=== PATIENT | female | born 2000 | race Caucasian/White ===

== ENCOUNTER 2024-02-08 13:24 | Emergency (ER) | payer MEDICAID ==
[~2024-02-08] VITALS: Ht 162.6 cm; Wt 113.6 kg
[2024-02-08 13:30] VITALS: BP 132/82; PULSE 82; TEMP 97.2; O2SAT 100
[2024-02-08] MEDS: ibuprofen tablet 400 MG TABLET PO ONE (14:22)
[2024-02-08 14:30] VITALS: RESP 17
== END 2024-02-08 14:31 | disposition home or self-care (01) ==
LOC: ER 13:24
DX: S93.402A Sprain of unspecified ligament of left ankle, initial encounter (principal); Z91.018 Allergy to other foods; X58.XXXA Exposure to other specified factors, initial encounter; Y93.89 Activity, other specified; Y92.89 Other specified places as the place of occurrence of the external cause; Y99.8 Other external cause status
CPT/HCPCS: 73610; 99283; A6449

== ENCOUNTER 2024-12-02 09:31 | Emergency (ER) | payer MEDICAID ==
[~2024-12-02] VITALS: Ht 160 cm; Wt 113.5 kg
[2024-12-02 09:53] VITALS: BP 144/90; PULSE 64; RESP 18; O2SAT 100
--- NOTE | 2024-12-02 10:50 | RADIOLOGY REPORT ---
EXAM: DI CHEST,SINGLE VIEW Indication: CP Technique: Single frontal view of the chest was obtained Comparison: None FINDINGS: Lines and Tubes: None Lungs: No focal consolidation. Pleura: No effusion. No pneumothorax. Cardiomediastinal contours: Unremarkable Bones: No acute osseous abnormality. IMPRESSION: No acute cardiopulmonary disease.
--- NOTE | 2024-12-02 11:21 | Physician Documentation ---
History of Present Illness ~ Chief Complaint: Cough Stated Complaint: COUGH Time Seen by MD: 10:50 [facility] This is a 24-year-old female who presents with three weeks of persistent nonproductive cough, patient reports that she has been seen at multiple urgent cares and diagnosed with bronchitis, patient reports that she is on a course of steroids and has been prescribed a inhaler and Tessalon Perles. Patient reports that prescribed this is a referrals do help though she is running low. Patient reports she is concerned she may have pneumonia. Patient reports no fevers or difficulty breathing. Patient reports that she does have history of GERD though this is untreated. Medication Reconciliation Allergies: Coded Allergies: kiwi (Verified Allergy, Unknown, 12/02/24) Scheduled Benzonatate* (Benzonatate*), 1-2 CAP PO Q4H Omeprazole (Omeprazole), 1 CAP PO DAILY Past Medical History Past Medical History: No Pertinent History Past Surgical History: no surgical history Alcohol Use: None Drug Use: none Lives with: Mother Lives In: Home Occupation: student Review of Systems ROS As stated above in the HPI, otherwise all systems are reviewed and negative. Physical Exam Vital Signs: Temperature: 98.0, Source: Oral, Heart Rate: 64, Respiratory Rate: 18, BP: 144/90, Pulse Oximetry: 100, Weight: 113.500 Oxygen Flow Rate: 0 Physical Exam VITALS: Reviewed and as above. GENERAL: Alert, nontoxic appearing, no apparent distress. RESPIRATORY: No increased work of breathing, no respiratory distress, speaking in full clear sentences, clear lung sounds in all robertson CV: Regular rate and rhythm no murmur Progress Results/Orders Results/Orders Vital Signs 12/02/24 12/02/24 09:53 11:36 Temp 98.0 98.0 Pulse 64 Resp 18 B/P (MAP) 144/90 Pulse Ox 100 O2 Flow Rate 0 EKG/XRAY/CT/US/VASC/MRI Chest X-Ray : Additional Comments Exam: CHEST,SINGLE VIEW EXAM: DI CHEST,SINGLE VIEW Indication: CP Technique: Single frontal view of the chest was obtained Comparison: None FINDINGS: Lines and Tubes: None Lungs: No focal consolidation. Pleura: No effusion. No pneumothorax. Cardiomediastinal contours: Unremarkable Bones: No acute osseous abnormality. IMPRESSION: No acute cardiopulmonary disease. Electronically Signed by:KELSIE HARVEY MD Date & Time: 12/02/241047 Dictated by: KELSIE HARVEY MD Dictation date and time: 12/02/241047 I have reviewed and agree with the radiology report. I have reviewed and interpreted the imaging as: No focal consolidation or pneumothorax Medical Decision Making Findings This 24-year-old female presented with persistent nonproductive cough, physical exam demonstrated clear lung sounds in all robertson and chest x-ray did not demonstrate evidence of consolidation to suggest pneumonia. Is reassuring patient reports no fevers. Patient reports Tessalon Perles do help. Symptoms are consistent with a previously diagnosed bronchitis and patient will be advised to continue previously prescribed treatment for bronchitis, Tessalon Perles will be refilled, given patient reports and a treated GERD treatment for GERD will be prescribed as well. Physical exam was otherwise benign, vital signs stable without evidence of hypoxia, and patient is appropriate for outpatient follow up. Follow up instructions, return to care precautions, and home care instructions discussed with the patient who verbalized understanding. Differential Dx:Considerations: Include: Allergic rhinitis, Influenza, Peritonsillar abscess, Pharyngitis-Diphtheria, Pharyngitis-Streptoccal, Pharyngitis-Viral, Pneumonia, Pnuemonitis, URI Departure Time of Disposition: 11:26 Disposition: 01 HOME / SELF CARE / HOMELESS Impression: Primary Impression: Acute bronchitis Qualified Codes: J20.9 - Acute bronchitis, unspecified Additional Impression: History of gastroesophageal reflux (GERD) Condition: Improved Discharge Instructions: Bronchitis Additional Instructions: Worse symptoms are consistent with bronchitis, this may take up to six weeks to resolve, continue to take your previously prescribed medications. I have represcribed your Tessalon Perles take them as previously prescribed. You may use ibuprofen up to 600 mg 4 times a day for rib pain, the ibuprofen with food to avoid stomach upset. I have started you on an acid reflux medication that you will take for the next 30 days, discussed with her primary care provider about continuing this medication past 30 days. Please follow up with your primary care provider in the next few days. Please return to the emergency department for any new or worsening concerning symptoms including but not limited to fever over 100.4 that does not lower with ibuprofen or Tylenol or if you develop difficulty breathing. Referrals: NO PRIMARY CARE PROVIDER (PCP) Prescriptions Omeprazole (Omeprazole) 20 Mg Capsule.dr 1 CAP PO DAILY for 30 Days, #30 CAP 0 Refills Prov: ALO RIVAS 12/02/24 Benzonatate* (Benzonatate*) 100 Mg Capsule 1-2 CAP PO Q4H for cough for 5 Days, #60 CAP Prov: ALO RIVAS 12/02/24 Education Educated: Patient Educated regarding: diagnosis, treatment, prognosis, need for follow up Signature Scribe Signature: No scribe Attestation: The note accurately reflects work and decisions made by me.AYANA King 12/03/24 20:16 ALO RIVAS Dec 02, 2024 11:21
[2024-12-02] MEDS ORDERED: OMEP20CA15 PO (11:26)
[2024-12-02] MEDS ORDERED: BENZ-38 PO (11:26)
[2024-12-02 11:36] VITALS: TEMP 98
== END 2024-12-02 11:37 | disposition home or self-care (01) ==
LOC: ER 09:31
DX: J20.9 Acute bronchitis, unspecified (principal); K21.9 Gastro-esophageal reflux disease without esophagitis; Z91.018 Allergy to other foods; Z79.899 Other long term (current) drug therapy
CPT/HCPCS: 71045; 99283